=== PATIENT | female | born 1945 | race Hispanic/Latino ===

== ENCOUNTER 2018-10-16 12:18 | Inpatient (IN) | payer MEDICARE ==
[2018-10-16] MEDS ORDERED: ARTIFICIAL TEARS OPHTH OINT OU PRN (12:26)
[2018-10-16] MEDS ORDERED: ATIVAN IV PRN (12:26)
[2018-10-16] MEDS ORDERED: VASELINE LIP THERAPY TP PRN (12:26)
[2018-10-16 12:45] LABS: Hematocrit 31.7 % (30.3-42.9); Hemoglobin 10.2 gm/dl (10.1-14.3); Mean Corpuscular HGB Conc 32 % (30-34); Mean Corpuscular Volume 86 fl (79-97); Platelet Count 236 K/mm3 (140-440); Red Blood Count 3.69 M/mm3 (3.65-5.03); Red Cell Distribution Width 17.5 % (13.2-15.2)
[2018-10-16 12:55] LABS: INR 2.69 (0.87-1.13); Partial Thromboplastin Time 34.3 Sec. (24.2-36.6)
[2018-10-16] MEDS ORDERED: ATIVAN 100 MG in NACL 0.9% 50 ML, VIAFLEX EMPTY CONTAINER 0 ML IV SCH (13:00)
[2018-10-16 13:09] LABS: Creatine Kinase MB 2.5 ng/mL (0.0-4.0)
--- NOTE | 2018-10-16 13:09 | Emergency Department Report ---
ED CPR HPI - General Stated Complaint: CARDIAC ARREST Time Seen by Provider: 10/16/18 12:34 - History of Present Illness Initial Comments: This is a 73-year-old female who suffered a cardiac arrest at her denominational prior to arrival. Paramedics report that the patient was shocked multiple times I think it may have been 4 times. They achieved the return of spontaneous circulation. They did not have an opportunity to get a blood pressure. They did find the patient have a normal blood sugar. Further historical information about the event is unavailable. The paramedics stated that they didn't know if the patient fell or not either. There was no apparent trauma on the scene or associated report, however. A Jake air was placed. The patient received a definitive airway on her arrival. Patient has not been to this facility for some time. The last note of disposition I see is from 2015. An associated cardiac cath report showed the presence of normal coronaries, previous mitral valve replacement and aortic stenosis.: Date of procedure: 01/03/16 Pre-op diagnosis: dyspnea, aortic stenosis Procedure: left heart cath - Hospital course Hospital course: Please see dictated cath report. - Disposition Condition at discharge: Stable Disposition: DC/TX ANOTHER TYPE HEALTHCARE - Discharge Diagnoses (1) Dyspnea Status: Acute (2) Aortic stenosis Status: Acute (3) Atrial fibrillation Status: Chronic (4) H/O mitral valve replacement with mechanical valve Status: Chronic The patient was at the bell staff's office yesterday. She has chronic dyspnea likely related to her severe pulmonary hypertension: Per our office notes, pt was seen on 10/15/2018 and c/o SOB with any activity, denied orthopnea PND or peripheral edema. Echo done 10/08/2018 showed EF 50-55%, RA severely dilated, s/p TAVR with AV mean gradient 27.07 and peak gradient 26.26, mod TR, severe pulm HTN with RVSP 79mmHg, mild to mod CO. She was scheduled for OP SONDRA on 10/29/2018 for eval of persistent dyspnea. Spoke to a fellow denominational member later. He stated that he witnessed the entire event. He also related that he was a previous [employer] medic. He stated that the patient was actually recounting her cardiac history to the denominational group when she abruptly stated she felt dizzy. She collapsed. She had a very "faint pulse". CPR was initiated (bystander). He stated that the EMS response was really quite quick. Complaint: collapsed during activity -: minute(s) Place: other ([facility]) Bystander CPR Performed: No (actually unknown) Number of Shocks Delivered: >3 Downtime Before ACLS Arrival (mins): 5 (clinical response time may have been chronic but this is only presumptive) Initial Findings in the Field: unresponsive ROSC in the Field: Yes Associated Injuries: No Associated Symptoms: other (unknown) Treatments Prior to Arrival: other airway device, chest compressions, defribrillated shocks #, epinephrine mgs # - Related Data Home Medications Medication Instructions Recorded Confirmed Last Taken Cyanocobalamin [Vitamin B-12] 1,000 mcg IM QMONTH 01/03/16 01/03/16 12/20/15 1000mcg Digoxin [Digox] 125 mcg PO DAILY 01/03/16 01/03/16 01/02/16 125mcg Diltiazem HCl [Diltiazem 24Hr ER] 180 mg PO BID 01/03/16 01/03/16 01/02/16 180mg Enoxaparin [Lovenox] 70 mg SC DAILY 01/03/16 01/03/16 01/02/16 70mg Ezetimibe [Zetia] 10 mg PO DAILY 01/03/16 01/03/16 01/02/16 10mg Fexofenadine HCl [Children's 180 mg PO DAILY 01/03/16 01/03/16 01/02/16 Liza Allergy] 180mg Furosemide 20 mg PO DAILY 01/03/16 01/03/16 01/02/16 20mg Potassium Chloride 20 meq PO BID 01/03/16 01/03/16 01/02/16 20meq Pravastatin Sodium 80 mg PO DAILY 01/03/16 01/03/16 01/02/16 80mg Ranitidine HCl [Zantac 150 MG TAB] 150 mg PO DAILY PRN 01/03/16 01/03/16 Unknown Ubidecarenone [Coq-10] 100 mg PO BID 01/03/16 01/03/16 01/02/16 100mg Warfarin Sodium [Coumadin] 5 mg PO DAILY 01/03/16 01/03/16 12/20/15 5mg Allergies Allergy/AdvReac Type Severity Reaction Status Date / Time codeine AdvReac Nausea Verified 01/03/16 07:07 ED Review of Systems ROS: Stated complaint: CARDIAC ARREST Other details as noted in HPI Comment: Unobtainable due to pts medical conditions ED Past Medical Hx - Past Medical History Hx Hypertension: Yes - Social History Smoking Status: Never Smoker - Medications Home Medications: Home Medications Medication Instructions Recorded Confirmed Last Taken Type Cyanocobalamin [Vitamin B-12] 1,000 mcg IM QMONTH 01/03/16 01/03/16 12/20/15 History 1000mcg Digoxin [Digox] 125 mcg PO DAILY 01/03/16 01/03/16 01/02/16 History 125mcg Diltiazem HCl [Diltiazem 24Hr ER] 180 mg PO BID 01/03/16 01/03/16 01/02/16 History 180mg Enoxaparin [Lovenox] 70 mg SC DAILY 01/03/16 01/03/16 01/02/16 History 70mg Ezetimibe [Zetia] 10 mg PO DAILY 01/03/16 01/03/16 01/02/16 History 10mg Fexofenadine HCl [Children's 180 mg PO DAILY 01/03/16 01/03/16 01/02/16 History Liza Allergy] 180mg Furosemide 20 mg PO DAILY 01/03/16 01/03/16 01/02/16 History 20mg Potassium Chloride 20 meq PO BID 01/03/16 01/03/16 01/02/16 History 20meq Pravastatin Sodium 80 mg PO DAILY 01/03/16 01/03/16 01/02/16 History 80mg Ranitidine HCl [Zantac 150 MG TAB] 150 mg PO DAILY PRN 01/03/16 01/03/16 Unknown History Ubidecarenone [Coq-10] 100 mg PO BID 01/03/16 01/03/16 01/02/16 History 100mg Warfarin Sodium [Coumadin] 5 mg PO DAILY 01/03/16 01/03/16 12/20/15 History 5mg ED Physical Exam - General Limitations: Other (coma) General appearance: other (unresponsive to stimuli except respiratory effort is noted) - Head Head exam: Present: atraumatic - Eye Eye exam: Present: other (pupils are small to mid position) - ENT ENT exam: Present: normal exam - Neck Neck exam: Absent: tenderness, meningismus - Respiratory Respiratory exam: Present: normal lung sounds bilaterally, other (breath sounds were present with Jake air ventilation. Upon intubation the cords were noted to abduct and there was some respiratory effort). Absent: respiratory distress, chest wall tenderness (bilateral mastectomy scar) - Cardiovascular Cardiovascular Exam: Present: bradycardia, irregular rhythm - GI/Abdominal GI/Abdominal exam: Present: soft. Absent: distended - Extremities Exam Extremities exam: Present: normal inspection - Back Exam Back exam: Present: normal inspection (limited upon arrival off backboard) - Skin Skin exam: Present: warm, dry, intact, normal color. Absent: rash ED Course Vital Signs 10/16/18 10/16/18 10/16/18 12:20 12:30 12:34 Pulse Rate 42 L 49 L 64 Respiratory 12 21 Rate Blood Pressure 128/62 O2 Sat by Pulse 100 100 Oximetry 10/16/18 10/16/18 10/16/18 12:46 13:00 14:16 Pulse Rate 59 L 48 L Respiratory 17 23 35 H Rate Blood Pressure 130/62 130/62 175/85 O2 Sat by Pulse 100 100 Oximetry - Reevaluation(s) Reevaluation #1: The patient was intubated upon arrival. I also placed a 18-gauge left EJ with Y site adapter. The patient was given one round of atropine and she was bradycardic. Her blood pressure did not however substantially deteriorate. On reexamination the blood pressure actually is now hypertensive range. Cardiology was consultation shortly after the initial resuscitation. The nurse practitioner Laverne has already seen the patient. I haven't received a report of their plan. We will proceed with CT of the head considering the patient's anticoagulated status and syncope. Hospitalist has been informed of the preliminary information. 10/16/18 13:14 Reevaluation #2: On reexamination the patient is noted to have what appears to be some purposeful movement particularly of the right arm. I am going to maintain her on sedation at this point. Further care per Dr. Ye the hospitalist and cardiac consultation. It did appear to me that the CT of her head showed nothing acute. 10/16/18 14:48 - EJ/Peripheral Line Neck L Time Out Performed: Yes Indications: multiple IV sites needed Skin Cleansed in Sterile Fashion: Yes Size: 18 Dressing Placed: Tegaderm Patient Tolerated Procedure: no complications - Intubation Time Out Performed: No Mg Given: 0 (RSI was not required) ET Tube Size: 7.5 Tube Secured Depth (cm): 22 Tube Secured Location: teeth Tube Placement Confirmation: visualized tube passing t Patient Tolerated Procedure: well Intubation Complications: none ED Medical Decision Making - Lab Data Result diagrams: 10/16/18 12:24 10/16/18 12:24 Laboratory Results - last 24 hr 10/16/18 10/16/18 10/16/18 12:24 12:24 12:24 WBC 17.8 H RBC 3.69 Hgb 10.2 Hct 31.7 MCV 86 MCH 28 MCHC 32 RDW 17.5 H Plt Count 236 PT 30.5 H INR 2.69 H APTT 34.3 Sodium 139 Potassium 3.3 L Chloride 100.3 Carbon Dioxide 14 L Anion Gap 28 BUN 22 H Creatinine 1.1 Estimated GFR 49 BUN/Creatinine Ratio 20 Glucose 272 H Calcium 8.6 Magnesium 2.30 Total Bilirubin 0.70 Direct Bilirubin < 0.2 AST 46 H ALT 43 Alkaline Phosphatase 66 Total Creatine Kinase 105 CK-MB (CK-2) 2.5 CK-MB (CK-2) Rel Index 2.3 Troponin T < 0.010 NT-Pro-B Natriuret Pep 1279 H Total Protein 5.5 L Albumin 3.8 L Albumin/Globulin Ratio 2.2 - EKG Data -: EKG Interpreted by Me Rate: bradycardia - EKG Data Interpretation: other (consistent with slow atrial fibrillation and i ntraventricular conduction delay) - Radiology Data interpreted by me: Initial chest x-ray was unremarkable except for the endotracheal tube tilted to the right at the alia. This was pulled back 1-2 cm. There is chronic interstitial disease. There is perhaps a stent in the aorta. MVR. I don't see anything acute on CT of the head. Radiology interpretation is Pending Critical Care Time: Yes Critical care time in (mins) excluding proc time.: 80 Critical care attestation.: If time is entered above; I have spent that time in minutes in the direct care of this critically ill patient, excluding procedure time. ED Disposition Clinical Impression: H/O mitral valve replacement with mechanical valve, Cardiac arrest, On continuous oral anticoagulation, Pulmonary hypertension Aortic stenosis Qualifiers: Cardiac valve disease etiology: etiology unspecified Qualified Code(s): I35.0 - Nonrheumatic aortic (valve) stenosis Atrial fibrillation Qualifiers: Atrial fibrillation type: unspecified Qualified Code(s): I48.91 - Unspecified atrial fibrillation Disposition: 09 OP ADMIT IP TO THIS HOSP Is pt being admited?: Yes Does the pt Need Aspirin: Yes (anticoagulated. I will leave the dosing of aspirin up to the hospitalist.) Condition: Stable Referrals: PRIMARY CARE, [Primary Care Provider] - 3-5 Days Time of Disposition: 14:50
[2018-10-16 13:11] LABS: Alanine Aminotransferase 43 units/L (7-56); Albumin 3.8 g/dL (3.9-5); BUN/Creatinine Ratio 20; Blood Urea Nitrogen 22 mg/dL (7-17); Calcium 8.6 mg/dL (8.4-10.2); Hemolysis Index 10
[2018-10-16 13:13] LABS: Bilirubin,Direct < 0.2 mg/dL (0-0.2)
[2018-10-16 13:18] LABS: Basophils % (Manual) 0 % (0.0-1.8); Eosinophils % (Manual) 0 % (0.0-4.3); Total Cells Counted 100
[2018-10-16 13:19] LABS: Anisocytosis Few; Ovalocytes Few; Platelet Estimate Consistent w Auto; Poikilocytosis 1+
--- NOTE | 2018-10-16 13:31 | History and Physical Report ---
History of Present Illness Chief complaint: Unresponsive History of present illness: 73 YO Female with Atrial Fib on therapeutic Anticoagulation, Aortic Stenosis, HTN presents to ED for evaluation. Pt is unresponsive and unable to provide history. Pt history provided by family who is at bedside during exam and intervi ew. As per family, the patient was is congregation, and became diaphoretic and oost consciousness. Witnesses immediately initiated CPR and notified EMS. Upon EMS arrival the patient was found to have cardiac arrest. Pt treated with ACLS protocol with return of perfusing rhythm. A Jake airway was placed in the field. Pt subsequently transported to [facility]. Pt seen and evaluated in ED and found to have SIRS and Acute Respiratory Failure. The Jake Airway was removed and a definitive airway was placed in ED. No reports of fever, chills, CP, Palpitations, NVD, Trauma, BRBPR, Productive Cough, or recent ill contacts. Pt admitted to ICU. Pulmonary team consulted in ED. Cardiology team consulted in ED. No prior admissions for review. Medication reconciled at time of admission. Past History Past Medical History: atrial fib, hypertension, other (Aortic Stenosis) Past Surgical History: valve replacement Social history: single. denies: smoking, alcohol abuse, prescription drug abuse Family history: hypertension Medications and Allergies Allergies Allergy/AdvReac Type Severity Reaction Status Date / Time codeine AdvReac Nausea Verified 01/03/16 07:07 Home Medications Medication Instructions Recorded Confirmed Last Taken Type Cyanocobalamin [Vitamin B-12] 1,000 mcg IM QMONTH 01/03/16 01/03/16 12/20/15 History 1000mcg Digoxin [Digox] 125 mcg PO DAILY 01/03/16 01/03/16 01/02/16 History 125mcg Diltiazem HCl [Diltiazem 24Hr ER] 180 mg PO BID 01/03/16 01/03/16 01/02/16 History 180mg Enoxaparin [Lovenox] 70 mg SC DAILY 01/03/16 01/03/16 01/02/16 History 70mg Ezetimibe [Zetia] 10 mg PO DAILY 01/03/16 01/03/16 01/02/16 History 10mg Fexofenadine HCl [Children's 180 mg PO DAILY 01/03/16 01/03/16 01/02/16 History Liza Allergy] 180mg Furosemide 20 mg PO DAILY 01/03/16 01/03/16 01/02/16 History 20mg Potassium Chloride 20 meq PO BID 01/03/16 01/03/16 01/02/16 History 20meq Pravastatin Sodium 80 mg PO DAILY 01/03/16 01/03/16 01/02/16 History 80mg Ranitidine HCl [Zantac 150 MG TAB] 150 mg PO DAILY PRN 01/03/16 01/03/16 Unknown History Ubidecarenone [Coq-10] 100 mg PO BID 01/03/16 01/03/16 01/02/16 History 100mg Warfarin Sodium [Coumadin] 5 mg PO DAILY 01/03/16 01/03/16 12/20/15 History 5mg Active Meds: Active Medications Hydrophilic Ointment (Vaseline Lip Therapy) 1 applic TP Q2HR PRN PRN Reason: Dry Lips Lorazepam 100 mg/ Sodium Chloride/ Miscellaneous Information 100 mls @ 1 mls/hr IV TITR PNENY; Protocol Lorazepam (Ativan) 2 mg IV Q10MIN PRN PRN Reason: Agitation Multi-Ingred Cream/Lotion/Oil/Oint (Artificial Tears Ophth Oint) 1 applic OU Q4HR PRN PRN Reason: Dry Eye(s) Review of Systems ROS unobtainable: due to mental status Exam - Constitutional Vitals: Temp Pulse Resp BP Pulse Ox 64 100 10/16/18 12:34 10/16/18 12:34 General appearance: Present: severe distress - EENT Eyes: Present: PERRL, miosis ENT: hearing intact, clear oral mucosa - Neck Neck: Present: supple, normal ROM - Respiratory Respiratory effort: labored Respiratory: bilateral: diminished, rhonchi - Cardiovascular Rhythm: other (bradycardia) Heart Sounds: Present: S1 & S2. Absent: rub, click - Extremities Extremities: pulses symmetrical, No edema Peripheral Pulses: within normal limits - Abdominal General gastrointestinal: Present: soft, non-tender, non-distended, normal bowel sounds Female genitourinary: Present: normal - Integumentary Integumentary: Present: clear, dry, clammy, decreased turgor - Musculoskeletal Musculoskeletal: generalized weakness - Psychiatric Psychiatric: no appropriate mood/affect, no intact judgment & insight, no memory intact - Neurologic Neurologic: CNII-XII intact, moves all extremities, no gait normal Results - Labs CBC & Chem 7: 10/16/18 12:24 10/16/18 12:24 Labs: Abnormal lab results 10/16/18 10/16/18 10/16/18 Range/Units 12:24 12:24 12:24 WBC 17.8 H (4.5-11.0) K/mm3 RDW 17.5 H (13.2-15.2) % Seg Neuts % (Manual) 74.0 H (40.0-70.0) % Monocytes % (Manual) 8.0 H (0.0-7.3) % Nucleated RBC % 1.0 H (0.0-0.9) % Seg Neutrophils # Man 13.2 H (1.8-7.7) K/mm3 Monocytes # (Manual) 1.4 H (0.0-0.8) K/mm3 PT 30.5 H (12.2-14.9) Sec. INR 2.69 H (0.87-1.13) Potassium 3.3 L (3.6-5.0) mmol/L Carbon Dioxide 14 L (22-30) mmol/L BUN 22 H (7-17) mg/dL Glucose 272 H (65-100) mg/dL AST 46 H (5-40) units/L NT-Pro-B Natriuret Pep 1279 H (0-900) pg/mL Total Protein 5.5 L (6.3-8.2) g/dL Albumin 3.8 L (3.9-5) g/dL Assessment and Plan - Patient Problems (1) Acute respiratory failure Current Visit: Yes Status: Acute Qualifiers: Respiratory failure complication: hypoxia Qualified Code(s): J96.01 - Acute respiratory failure with hypoxia Plan to address problem: Admit to ICU, supplemental oxygen, nebs, Pt intubated and placed on vent support, pulse oximetry, wean vent as tolerated, ABG daily, SBT daily, pulmonary team consulted in ED. The high probability of a clinically significant, sudden or life threatening deterioration of the [Pulmonary, renal, neuro] system(s) required my full and direct attention, intervention and personal management. The aggregate critical care time was [65] minutes. This time is in addition to time spent performing reported procedures but includes the following: [x] Data Review and interpretation [x] Patient assessment and monitoring of vital signs [x] Documentation [x] Medication orders and management (2) Cardiac arrest Current Visit: Yes Status: Acute Plan to address problem: Cardiology consulted, S/P initiation ACLS protocol with return of perfusing rhythm. (3) SIRS (systemic inflammatory response syndrome) Current Visit: Yes Status: Acute Plan to address problem: Empiric antibiotics, chest x ray, blood cultures, urinalysis, chest x ray, CBC, CMP, repeat CBC in AM. (4) CHF (congestive heart failure) Current Visit: Yes Status: Acute Qualifiers: Heart failure type: systolic Heart failure chronicity: acute Qualified Code(s): I50.21 - Acute systolic (congestive) heart failure Plan to address problem: Admit to ICU, cardiology consulted in ED, Echo when medically stable, continue current therapy, strict I/O, daily weight, monitor uop q shift, chest x ray, Suspect Diastolic CHF S/P Cardiac arrest. (5) DVT prophylaxis Current Visit: Yes Status: Acute Plan to address problem: SCD to BLE while in bed, supratherapeutic INR at time of admission. Continue therapeutic lovenox due to valve replacement.
--- NOTE | 2018-10-16 13:32 | Consultation ---
History of Present Illness Consult date: 10/16/18 Requesting physician: ZOE STATON Consult reason: cardiac arrest History of present illness: The pt is a 73-year-old female with a past medical history of severe s/p TAVR, rheumatic fever s/p mechanical mitral valve replacement, parox AFib, anticoagulated with coumadin, HTN, HLP, breast CA s/p mastectomy, hypothy roidism. She is followed in our office by Dr. Rico. She is seen s/p cardiac arrest and is intubated and thus HPI obtained per the chart. She suffered a cardiac arrest at her confucianist prior to arrival. Paramedics report that the patient was shocked multiple times. They achieved the return of spontaneous circulation. Further historical information about the event is unavailable. A Jake air was placed in the field. The patient was intubated following arrival to ED. Pt noted to be in AFib with SVR following arrival and was given one round of atropine in ED. On evaluation, she is noted to be in AFib with HR 60s, BPs WNL. LHC 12/2015 showed normal coronary arteries, moderate to severe aortic stenosis associated with moderate aortic insufficiency (a normal functioning mitral valve mechanical prosthesis and normal global LV systolic function). PA pressure was 60/30, mean 47. She was referred to Dr. Tate at [facility] for consideration for aortic valve replacement, either TAVR versus open surgical replacement. She subsequently underwent TAVR in 02/2016. Per our office notes, pt was seen on 10/15/2018 and c/o SOB with any activity, denied orthopnea PND or peripheral edema. Echo done 10/08/2018 showed EF 50-55%, RA severely dilated, s/p TAVR with AV mean gradient 27.07 and peak gradient 26.26, mod TR, severe pulm HTN with RVSP 79mmHg, mild to mod AK. She was scheduled for OP SON[facility] on 10/29/2018 for eval of persistent dyspnea. Past History Past Medical History: other (as per HPI) Medications and Allergies Allergies Allergy/AdvReac Type Severity Reaction Status Date / Time codeine AdvReac Nausea Verified 01/03/16 07:07 Home Medications Medication Instructions Recorded Confirmed Last Taken Type Cyanocobalamin [Vitamin B-12] 1,000 mcg IM QMONTH 01/03/16 01/03/16 12/20/15 History 1000mcg Digoxin [Digox] 125 mcg PO DAILY 01/03/16 01/03/16 01/02/16 History 125mcg Diltiazem HCl [Diltiazem 24Hr ER] 180 mg PO BID 01/03/16 01/03/16 01/02/16 History 180mg Enoxaparin [Lovenox] 70 mg SC DAILY 01/03/16 01/03/16 01/02/16 History 70mg Ezetimibe [Zetia] 10 mg PO DAILY 01/03/16 01/03/16 01/02/16 History 10mg Fexofenadine HCl [Children's 180 mg PO DAILY 01/03/16 01/03/16 01/02/16 History Liza Allergy] 180mg Furosemide 20 mg PO DAILY 01/03/16 01/03/16 01/02/16 History 20mg Potassium Chloride 20 meq PO BID 01/03/16 01/03/16 01/02/16 History 20meq Pravastatin Sodium 80 mg PO DAILY 01/03/16 01/03/16 01/02/16 History 80mg Ranitidine HCl [Zantac 150 MG TAB] 150 mg PO DAILY PRN 01/03/16 01/03/16 Unknown History Ubidecarenone [Coq-10] 100 mg PO BID 01/03/16 01/03/16 01/02/16 History 100mg Warfarin Sodium [Coumadin] 5 mg PO DAILY 01/03/16 01/03/16 12/20/15 History 5mg Active Meds: Active Medications Hydrophilic Ointment (Vaseline Lip Therapy) 1 applic TP Q2HR PRN PRN Reason: Dry Lips Lorazepam 100 mg/ Sodium Chloride/ Miscellaneous Information 100 mls @ 1 mls/hr IV TITR PENNY; Protocol Lorazepam (Ativan) 2 mg IV Q10MIN PRN PRN Reason: Agitation Multi-Ingred Cream/Lotion/Oil/Oint (Artificial Tears Ophth Oint) 1 applic OU Q4HR PRN PRN Reason: Dry Eye(s) Review of Systems ROS unobtainable: due to endotracheal tube, due to mental status Physical Examination Vital Signs Pulse Pulse Ox 64 100 10/16/18 12:34 10/16/18 12:34 General appearance: other (intubated, nonresponsive) Cardiac: Positive: irregularly irregular, S1/S2, Systolic Murmur Lungs: Positive: Decreased Breath Sounds, Ventilated Respirations Neuro: Positive: Other (ENZO) Skin: Negative: Rash, Wound Musculoskeletal: No Pain Extremities: Absent: edema Results 10/16/18 12:24 10/16/18 12:24 Cardiac Enzymes 10/16/18 Range/Units 12:24 AST 46 H (5-40) units/L CK-MB (CK-2) 2.5 (0.0-4.0) ng/mL Coagulation 10/16/18 Range/Units 12:24 PT 30.5 H (12.2-14.9) Sec. INR 2.69 H (0.87-1.13) APTT 34.3 (24.2-36.6) Sec. CBC 10/16/18 Range/Units 12:24 WBC 17.8 H (4.5-11.0) K/mm3 RBC 3.69 (3.65-5.03) M/mm3 Hgb 10.2 (10.1-14.3) gm/dl Hct 31.7 (30.3-42.9) % Plt Count 236 (140-440) K/mm3 Comprehensive Metabolic Panel 10/16/18 Range/Units 12:24 Sodium 139 (137-145) mmol/L Potassium 3.3 L (3.6-5.0) mmol/L Chloride 100.3 (98-107) mmol/L Carbon Dioxide 14 L (22-30) mmol/L BUN 22 H (7-17) mg/dL Creatinine 1.1 (0.7-1.2) mg/dL Glucose 272 H (65-100) mg/dL Calcium 8.6 (8.4-10.2) mg/dL Direct Bilirubin < 0.2 (0-0.2) mg/dL AST 46 H (5-40) units/L ALT 43 (7-56) units/L Alkaline Phosphatase 66 (35-129) units/L Total Protein 5.5 L (6.3-8.2) g/dL Albumin 3.8 L (3.9-5) g/dL - Imaging and Cardiology Echo: pending, report reviewed (10/08/2018 showed EF 50-55%, RA severely dilated, s/p TAVR with AV mean gradient 27.07 and peak gradient 26.26, mod TR, severe pulm HTN with RVSP 79mmHg, mild to mod AK. ) Cardiac cath: report reviewed (12/2015 showed normal coronary arteries, moderate to severe aortic stenosis associated with moderate aortic insufficiency (a normal functioning mitral valve mechanical prosthesis and normal global LV systolic function). ) EKG: report reviewed, image reviewed EKG interpretations - Telemetry EKG Rhythm: Atrial Fibrillation - EKG Supraventricular dysrhythmia: atrial fibrillation Assessment and Plan Cont current supportive management. Avoid AV alla blocking agents. Await head CT. INR therapeutic on admission. Pending head CT with NAF, recommend heparinization in setting of PAF and mechanical mitral valve. Cont to trend Bandar and repeat ECG in AM. F/u echo. Replete K+. The patient has been seen in conjunction with Dr. Washington who agrees with the assessment and plan of care. - Patient Problems (1) Cardiopulmonary arrest with successful resuscitation Current Visit: Yes Status: Acute (2) Acute respiratory failure Current Visit: Yes Status: Acute (3) Atrial fibrillation with slow ventricular response Current Visit: Yes Status: Acute (4) S/P TAVR (transcatheter aortic valve replacement) Current Visit: Yes Status: Chronic (5) History of rheumatic fever Current Visit: Yes Status: Chronic (6) H/O mitral valve replacement with mechanical valve Current Visit: Yes Status: Chronic (7) HTN (hypertension) Current Visit: Yes Status: Chronic (8) History of breast cancer Current Visit: Yes Status: Chronic (9) History of hypothyroidism Current Visit: Yes Status: Chronic (10) Hypokalemia Current Visit: Yes Status: Acute
--- NOTE | 2018-10-16 13:56 | XRay Report ---
Single view chest: History: Chest pain. Findings: Cardiomegaly. Trachea is midline. Tip of endotracheal tube in normal position. Mild pulmonary venous congestion. No consolidation or pleural effusion. Impression: Cardiomegaly with mild pulmonary venous congestion.
[2018-10-16] MEDS ORDERED: SODIUM CHLORIDE FLUSH SYRINGE 10 ML IV PRN (13:59)
[2018-10-16] MEDS ORDERED: PROVENTIL IH PRN (13:59)
[2018-10-16] MEDS ORDERED: SUBLIMAZE IV PRN (15:17)
[2018-10-16] MEDS ORDERED: KCL 10MEQ/100ML 10 MEQ/100 ML BAG IV ONE ×3 (15:17→21:30)
[2018-10-16] MEDS ORDERED: fentaNYL DRIP Premix 2,000 MCG/100 ML BAG IV ONE (15:45)
[2018-10-16 15:48] LABS: Chol/HDL Ratio 3.87 %
[2018-10-16] MEDS ORDERED: NON-FORMULARY (Ranitidine Hcl [Zantac 150 Mg Tab] 150 MG) PO PRN (15:55)
[2018-10-16] MEDS ORDERED: fentaNYL DRIP Premix 2,000 MCG/100 ML BAG IV SCH (16:00)
[2018-10-16] MEDS: KCL 10MEQ/100ML 10 MEQ/100 ML BAG IV SCH ×4 (16:09→21:10)
[2018-10-16] MEDS ORDERED: KCL 10MEQ/100ML 20 MEQ/200 ML BAG IV ONE (17:07)
[2018-10-16] MEDS ORDERED: NACL 0.9% 1000 ML 1,000 ML ONE (17:34)
[2018-10-16] MEDS ORDERED: NACL 0.9% 500 ML 500 ML IV ONE (17:44)
[2018-10-16] MEDS ORDERED: LEVOPHED DRIP 4 MG/NS 250 ML 4 MG/250 ML BAG IV SCH (18:00)
[2018-10-16] MEDS ORDERED: LEVOPHED DRIP 4 MG/NS 250 ML 4 MG/250 ML BAG IV ONE (18:29)
[2018-10-16] MEDS ORDERED: PEPCID PO PRN (20:32)
[2018-10-16] MEDS ORDERED: HYDROGEN PEROXIDE ONE (20:36)
[2018-10-16] MEDS ORDERED: SODIUM CHLORIDE FLUSH SYRINGE 10 ML IV SCH (22:00)
[2018-10-16] MEDS ORDERED: NON-FORMULARY (Ubidecarenone [Coq-10] 100 MG) PO SCH (22:00)
[2018-10-16] MEDS ORDERED: INTROPIN DRIP 800 MG/D5W 250 ML 800 MG/250 ML BAG IV SCH (22:45)
[2018-10-17 01:32] VITALS: BP 146/44
[2018-10-17] MEDS ORDERED: MORPHINE IV PRN (01:48)
--- NOTE | 2018-10-17 03:20 | XRay Report ---
PROCEDURE: XR CHEST 1V AP TECHNIQUE: Chest radiograph single view. HISTORY: follow up respiratory failure COMPARISONS: October 16, 2018 . FINDINGS: Heart: Heart is enlarged. There has been open heart surgery. Mediastinum/Vessels: Normal. Lungs/Pleural space: There is suboptimal inspiration. There are no infiltrates, effusions or pneumot horaces.. Bony thorax: No acute osseous abnormality. Life support devices: Endotracheal tube is in the mid trachea.. IMPRESSION: No acute cardiopulmonary abnormality. Endotracheal tube is in proper position. This document is electronically signed by Chuck Manuel MD., October 17 2018 03:18:21 AM ET
--- NOTE | 2018-10-17 06:58 | Death Summary ---
Summary - Providers Date of service: 10/17/18 Consults: 10/16/18 12:27 Consult to Dietitian/Nutrition [CONS] Routine Physician Instructions: Reason For Exam: Reason for Consult: Evaluate nutritional intake 10/16/18 13:04 Consult to Cardiology [CONS] Stat Consulting Provider: OBIE ARCHER Reason For Exam: Post CPR Attending: NIC TABARES MD - summary Date of admission: 10/16/18 13:59 Date of : 10/17/18 Significant findings: Patient seen and examined No spontaneous respiration No heart sounds no pulse Pupils fixed and dilated Procedures/treatments rendered: Patient made DO NOT RESUSCITATE As per family's wishes withdrawal of care orders initiated Patient was extubated Patient
[2018-10-17] MEDS ORDERED: LOVENOX SUB-Q SCH (10:00)
[2018-10-17] MEDS ORDERED: PRAVACHOL PO SCH (10:00)
[2018-10-17] MEDS ORDERED: CLARITIN PO SCH (10:00)
[2018-10-17] MEDS ORDERED: LANOXIN PO SCH (10:00)
[2018-10-17] MEDS ORDERED: [UNRECOGNIZED DRUG - REMARK] PO SCH (10:00)
[2018-10-17] MEDS ORDERED: ROCEPHIN/NS 1 GM/50 ML 1 GM/50 ML BAG IV SCH (10:00)
[2018-10-17] MEDS ORDERED: ZETIA PO SCH (10:00)
--- NOTE | 2018-10-17 10:29 | Cat Scan Report ---
CT scan of head without IV contrast: History: Cardiac arrest. Stupor. Findings: Ventricles are normal in size and midline in location. No evidence of acute ischemia , hemorrhage or mass. No extra-axial fluid collection. Evidence of mild cortical atrophy. Normal sinuses. Impression: No acute intracranial abnormality. Cortical atrophy.
--- NOTE | 2018-11-13 11:38 | Death Summary ---
Summary - Providers Date of service: 10/17/18 Consults: 10/16/18 12:27 Consult to Dietitian/Nutrition [CONS] Routine Physician Instructions: Reason For Exam: Reason for Consult: Evaluate nutritional intake 10/16/18 13:04 Consult to Cardiology [CONS] Stat Consulting Provider: OBIE ARCHER Reason For Exam: Post CPR Attending: NIC TABARES MD - summary Date of admission: 10/16/18 13:59 Date of : 10/17/18 - Final diagnosis (1) Acute respiratory failure Qualifiers: Respiratory failure complication: hypoxia Qualified Code(s): J96.01 - Acute respiratory failure with hypoxia Note: Final diagnosis: (2) Cardiac arrest Note: Final diagnosis: (3) SIRS (systemic inflammatory response syndrome) Note: Final diagnosis: (4) CHF (congestive heart failure) Qualifiers: Heart failure type: systolic Heart failure chronicity: acute Qualified Code(s): I50.21 - Acute systolic (congestive) heart failure Note: Final diagnosis: (5) DVT prophylaxis Note: Final diagnosis:
== END 2018-10-17 02:28 | DRG 208 ==
LOC: ED 12:18 → CC1 13:59
PROVIDERS: ADMIT Internal Medicine; ATTEND Internal Medicine
PROC: 5A1935Z Respiratory Ventilation, Less than 24 Consecutive Hours (ICD-10-PCS; principal; 2018-10-16)
PROC: 0BH17EZ Insertion of Endotracheal Airway into Trachea, Via Natural or Artificial Opening (ICD-10-PCS; 2018-10-16)
PROC: 4A033R1 Measurement of Arterial Saturation, Peripheral, Percutaneous Approach (ICD-10-PCS; 2018-10-16)
DX: J96.01 Acute respiratory failure with hypoxia (principal); I50.21 Acute systolic (congestive) heart failure; R65.10 Systemic inflammatory response syndrome (SIRS) of non-infectious origin without acute organ dysfunction; I48.91 Unspecified atrial fibrillation; I10 Essential (primary) hypertension; I27.20 Pulmonary hypertension, unspecified; E87.6 Hypokalemia; E03.9 Hypothyroidism, unspecified; I46.9 Cardiac arrest, cause unspecified; Z66 Do not resuscitate; Z79.01 Long term (current) use of anticoagulants; Z82.49 Family history of ischemic heart disease and other diseases of the circulatory system; Z88.5 Allergy status to narcotic agent; Z79.899 Other long term (current) drug therapy; Z95.4 Presence of other heart-valve replacement
CPT/HCPCS: 36415; 70450; 71045; 80048; 80061; 80076; 82550; 82553; 82803; 83735; 83880; 84484; 85007; 85025; 85610; 85730; 86850; 86900; 86901; 87205; 93005; 93010; 93306; 94002; 96374; 96375; 99292; G0378; A9270-GY; J0696; J2060; J3010; J3480; J7030